=== PATIENT | female | born 1985 | race American Indian/Alaskan Native ===

== ENCOUNTER 2020-12-20 15:25 | Inpatient (IN) | payer MEDICAID ==
[2020-12-20] MEDS ORDERED: CARBOPROST TROMETHAMINE 250 MCG/1 ML INJ IM PRN (18:03)
[2020-12-20] MEDS ORDERED: fentaNYL 100 MCG/2 ML INJ IV PRN (18:03)
[2020-12-20] MEDS ORDERED: MINERAL OIL 30 ML ORAL LIQD PO PRN (18:03)
[2020-12-20] MEDS ORDERED: METHYLERGONOVINE MALEATE 0.2 MG/ML VIAL IM PRN (18:03)
[2020-12-20] MEDS ORDERED: miSOPROStol 200 MCG TAB PR PRN (18:03)
[2020-12-20] MEDS ORDERED: LIDOCAINE (2%) 20 MG/1 ML VIAL 20 ML MDV INFILTRATI ONE (18:03)
[2020-12-20] MEDS ORDERED: BUTORPHANOL 2 MG/1 ML INJ IV PRN (18:03)
[2020-12-20] MEDS ORDERED: ACETAMINOPHEN 325 MG TAB PO PRN (18:03)
[2020-12-20] MEDS ORDERED: TERBUTALINE 1 MG/1 ML INJ SUB-Q PRN (18:03)
[2020-12-20] MEDS ORDERED: LOPERAMIDE 2 MG CAP PO PRN (18:03)
[2020-12-20] MEDS ORDERED: OXYTOCIN 10 UNIT/1 ML INJ IM PRN (18:03)
[2020-12-20] MEDS ORDERED: AMPICILLIN/NS 2 GM/100 ML 2 GM/100 ML BAG IV ONE (18:03)
[2020-12-20] MEDS ORDERED: NalbUPHINE 10 MG/1 ML INJ IV PRN (18:03)
[2020-12-20] MEDS ORDERED: ePHEDrine SULFATE 50 MG/1 ML INJ IV PRN (18:03)
[2020-12-20] MEDS ORDERED: OXYTOCIN DRIP 30 UNITS/500 ML BAG IV SCH (19:00)
--- NOTE | 2020-12-20 20:03 | History and Physical Report ---
History of Present Illness Date of examination: 12/20/20 Date of admission: 12/20/20 15:26 Chief complaint: IOL for non-reactive NST at term History of present illness: 35-year-old -2-1-1 at 40 weeks and 1 day complicated by history of incompetent cervix status post cerclage and removal, class III obesity, size greater than dates with a history of a 10 pound baby suspected ASA of fetus to be managed postnatally. Renal chart reviewed B+ antibody negative Hemoglobin hematocrit 12.3 and 39.3 Rubella immune Pap smear negative VDRL nonreactive Urine culture negative Hemoglobin B surface antigen negative HIV negative Platelets 216,000 Gonorrhea chlamydia negative Varicella immune Ultrasound size equal to dates at 6 weeks and 6 days 1 hour GTT 85 -> 132 [id number] neg GBS negative neg Past History Past Medical History: no pertinent history Past Surgical History: other (cerclage placement and removal x 2) CLAIMS SPECIALIST History: herpes Family/Genetic History: diabetes, stroke, cancer (breast CA), other (asthma, thyroid CA,) Social history: no significant social history - Obstetrical History Expected Date of Delivery: 12/19/20 Actual Gestation: 40 Week(s) 1 Day(s) : 5 Para: 3 Hx # Term Pregnancies: 1 Number of Pregnancies: 2 Spontaneous Abortions: 1 Number of Living Children: 1 Medications and Allergies Allergies Allergy/AdvReac Type Severity Reaction Status Date / Time amoxicillin Allergy Nausea Verified 12/28/14 21:45 Home Medications Medication Instructions Recorded Confirmed Last Taken Type Multivitamins 1 tab PO DAILY 06/12/14 01/01/15 06/25/14 06:45 History Erythromycin Base [Apolinar-Tab] 250 mg PO QID #40 tablet 06/26/14 01/01/15 Unknown Rx Indomethacin 50 mg PO Q6H #12 capsule 06/26/14 01/01/15 Unknown Rx metroNIDAZOLE [Flagyl] 250 mg PO Q8HR #21 tablet 06/26/14 01/01/15 Unknown Rx oxyCODONE /ACETAMINOPHEN [Percocet 1 tab PO Q6HR PRN #30 tablet 06/26/14 01/01/15 Unknown Rx 5/325] Active Meds: Active Medications Acetaminophen (Acetaminophen 325 Mg Tab) 650 mg PO Q4H PRN PRN Reason: Pain, Mild (1-3) Butorphanol Tartrate (Butorphanol 2 Mg/1 Ml Inj) 2 mg IV Q2H PRN PRN Reason: Pain , Severe (7-10) Carboprost Tromethamine (Carboprost Tromethamine 250 Mcg/1 Ml Inj) 250 mcg IM ONCE PRN PRN Reason: Uterine Bleeding Ephedrine Sulfate (Ephedrine Sulfate 50 Mg/1 Ml Inj) 10 mg IV Q2M PRN PRN Reason: Hypotension Fentanyl (Fentanyl 100 Mcg/2 Ml Inj) 100 mcg IV Q2H PRN PRN Reason: Pain,Severe (7-10) LABOR PAIN Oxytocin/Sodium Chloride (Pitocin/Ns 30 Unit/500ml) 30 units in 500 mls @ 2 mls/hr IV TITR JOSE; Protocol Lactated Ringer's (Lactated Ringers) 1,000 mls @ 125 mls/hr IV DIRECT JOSE Oxytocin/Sodium Chloride (Pitocin/Ns 30 Unit/500ml) 30 units in 500 mls @ 40 mls/hr IV TITR JOSE; Protocol Loperamide HCl (Loperamide 2 Mg Cap) 2 mg PO ONCE PRN PRN Reason: give with Hemabate Methylergonovine Maleate (Methylergonovine Maleate 0.2 Mg/Ml Vial) 0.2 mg IM ONCE PRN PRN Reason: Uterine Bleeding Mineral Oil (Mineral Oil 30 Ml Oral Liqd) 30 ml PO QHS PRN PRN Reason: Constipation Misoprostol (Misoprostol 200 Mcg Tab) 800 mcg ND ONCE PRN PRN Reason: Uterine Bleeding Nalbuphine HCl (Nalbuphine 10 Mg/1 Ml Inj) 10 mg IV Q2H PRN PRN Reason: Pain, Moderate (4-6) Oxytocin (Oxytocin 10 Unit/1 Ml Inj) 10 unit IM ONCE PRN PRN Reason: Uterine Bleeding Terbutaline Sulfate (Terbutaline 1 Mg/1 Ml Inj) 0.25 mg SUB-Q ONCE PRN PRN Reason: Hyperstimulation/Hypertonicity Review of Systems All systems: negative (expect HPI) - Vital Signs Vital signs: Vital Signs Pulse BP Pulse Ox 88 127/70 97 12/20/20 16:35 12/20/20 16:35 12/20/20 16:35 Temp Pulse Resp BP Pulse Ox 98.3 F 85 17 128/72 98 12/20/20 19:52 12/20/20 19:53 12/20/20 19:52 12/20/20 19:53 12/20/20 19:53 - Physical Exam Abdomen: Positive: normal appearance, soft, normal bowel sounds Genitourinary (Female): Positive: normal external genitalia - Obstetrical FHR: category 1 Uterine Contraction Monitor Mode: External Cervical Dilatation: 4 Cervical Effacement Percentage: 50 station: -3 Uterine Contraction Pattern: Irregular Results All other labs normal. Assessment and Plan - Patient Problems (1) Active labor at term Onset Date: 01/01/15 Current Visit: No Status: Acute Plan to address problem: Patient presenting for induction of labor for nonreactive NST in clinic. Patient is full-term with indication of delivery for size greater than dates with a history of a 10 pound . --Proceed with Pitocin per protocol for induction of labor --GBS neg --IV pain medication as needed, epidural is available --Anticipate
[2020-12-20] MEDS: OXYTOCIN DRIP 30 UNITS/500 ML BAG IV SCH (20:51)
[2020-12-20] MEDS: LACTATED RINGERS 1,000 ML IV SCH (20:51)
[2020-12-20 21:02] LABS: Hematocrit 35.9 % (30.3-42.9); Hemoglobin 11.6 gm/dl (10.1-14.3); Mean Corpuscular HGB Conc 32 % (30-34); Mean Corpuscular Volume 82 fl (79-97); Platelet Count 158 K/mm3 (140-440); Red Blood Count 4.36 M/mm3 (3.65-5.03)
[2020-12-21] MEDS: LACTATED RINGERS 1,000 ML IV SCH ×2 (10:01→17:01)
--- NOTE | 2020-12-21 12:54 | Event Note ---
Date: 12/21/20 pt evaluated. Pelvic 5-/-1 with cerclage removed 12/03/20 by [facility]. AROM attempted with FSE and scant fluid with mucus plug obtained, indeterminate at this time. I will stop pitocin now at 20mu/min. Discussed with pt plan of care with previous 10lb vag delivery and possible need for c/section this . pt declines aware of risk of shoulder dystocia. Pt offered epidural and she declines. Will allow reset of pitocin receptors. and restart pitocin at 2m/u every 15mins and a new bag of pitocin.
[2020-12-21] MEDS: OXYTOCIN DRIP 30 UNITS/500 ML BAG IV SCH (13:16)
[2020-12-21] MEDS ORDERED: LACTATED RINGERS 250 ML IV SOLN IV ONE (17:14)
[2020-12-21] MEDS ORDERED: LACTATED RINGERS 1,000 ML IV SCH (17:30)
[2020-12-21] MEDS ORDERED: NALOXONE 2 MG/2 ML INJ IV PRN (18:00)
[2020-12-21] MEDS ORDERED: ePHEDrine SULFATE 50 MG/1 ML INJ IV PRN (18:00)
[2020-12-21] MEDS ORDERED: ONDANSETRON 4 MG/2 ML INJ IV PRN (18:00)
[2020-12-21] MEDS ORDERED: diphenhydrAMINE 50 MG/ML VIAL IV PRN (18:00)
[2020-12-21] MEDS ORDERED: NalbUPHINE 10 MG/1 ML INJ IV PRN (18:00)
[2020-12-21] MEDS: fentaNYL-BUPIV 2 MCG/ML-0.125% 200 MCG/100 ML BAG EPIDURAL SCH (18:21)
--- NOTE | 2020-12-21 18:51 | Anesthesia Consultation ---
Anesthesia Consult and Med Hx Date of service: 12/21/20 - Airway Anesthetic Teeth Evaluation: Good ROM Head & Neck: Adequate Mental/Hyoid Distance: Adequate Mallampati Class: Class III Intubation Access Assessment: Possibly Difficult - Pre-Operative Health Status ASA Pre-Surgery Classification: ASA3 Proposed Anesthetic Plan: Epidural, Spinal - Pulmonary Hx Smoking: No Hx Respiratory Symptoms: No - Cardiovascular System Hx Hypertension: No - Central Nervous System Hx Neuromuscular Disorder: No CVA: No - Endocrine Hx Renal Disease: No Hx Liver Disease: No Hx Insulin Dependent Diabetes: No Hx Non-Insulin Dependent Diabetes: No Hx Thyroid Disease: No - Other Systems Hx Obesity: Yes (BMI 47) - Additional Comments Anesthesia Medical History Comments: Denies hx back surgery, scoliosis, bleeding disorders or anticoagulant use. No hx anesthetic complications. Hx cerclage under neuraxial without complications.
--- NOTE | 2020-12-21 18:53 | Progress Note ---
Labor Epidural - Labor Epidural Start Time: 17:59 Stop Time: 16:13 Performed by:: ANSHUL DUQUE Procedure: Patient is requesting epidural for labor pain. H&P and labs reviewed. Procedure explained, questions answered, consent obtained. Patient placed in sitting position with monitors applied. Timeout performed immediately before start of procedure. Prep/drape in usual sterile fashion. Skin localized 3 mL 1% lidocaine at L[2]-L[3] interspace. 18-gauge MCube, Inctead epidural needle advanced to TANESHA with saline at [8] cm. No blood/CSF noted via epidural needle. 26g spinal needle advanced into intrathecal space until clear, free flowing CSF noted. 0.5cc 0.75% hyperbaric bupivacaine + 0.5cc sterile saline injected into intrathecal space. Spinal needle removed and epidural catheter advanced to [13] cm. Negative aspiration for blood and CSF via catheter, negative response to test dose 3 ml 1.5% lidocaine w/ epi. Sterile dressing applied followed by tape reinforcement. Patient tolerated procedure well. No immediate complications noted.
[2020-12-22] MEDS: fentaNYL-BUPIV 2 MCG/ML-0.125% 200 MCG/100 ML BAG EPIDURAL SCH ×2 (02:15→10:22)
[2020-12-22] MEDS ORDERED: BUPIVACAINE/PF (0.25%) 2.5 MG/ML 10 ML VIAL INFILTRATI ONE (02:35)
--- NOTE | 2020-12-22 04:10 | Event Note ---
Date: 12/22/20 pt evaluated after nurse stated pt had a large gush of fluid and FHR noted to be in 70-90's, the OR opened in prep for emergent section. Pt declined c/section aware of the risks, benefits and alternatives. IV pitocin at 20mu/min and same stopped, brethine x1 dose given for tacchysystole. FSE attempted x2 without avail. External with reassuring FHR. IV fluid bolus given. Large amount of amniotic clear fluid noted. Pelvic 7-. IUPC remains in place.
[2020-12-22] MEDS ORDERED: VANCOMYCIN/NS 1 GM/250 ML 1 GM/250 ML BAG IV SCH (06:00)
--- NOTE | 2020-12-22 09:27 | Progress Note ---
Subjective - Subjective Date of service: 12/22/20 Interval history: Prolonged active phase: Cervix 9cm/80%/-2 [place]: Q6 minutes OCytocin on hold from PM shift for NRFHT FHT at bedside: 140 baseline, period of minimal to moderate variability, +ve accelerations Late decelerations noted this morning(resolved) Patient has not eaten since Sunday AM plan for fluids, oxytocin and cfm expect in next four hours or plan for operative delivery Jarvis Nettles MD Objective - Vital Signs Vital Signs: Vital Signs - 12hr 12/21/20 12/21/20 12/21/20 21:23 21:26 21:28 Temperature Pulse Rate 72 73 73 Respiratory Rate Blood Pressure 122/65 124/65 Blood Pressure [Left] O2 Sat by Pulse 98 96 Oximetry O2 Sat by Pulse Oximetry [ Throughout] 12/21/20 12/21/20 12/21/20 21:29 21:30 21:32 Temperature 98.1 F Pulse Rate 67 71 71 Respiratory Rate Blood Pressure 127/65 114/58 Blood Pressure [Left] O2 Sat by Pulse 94 Oximetry O2 Sat by Pulse Oximetry [ Throughout] 12/21/20 12/21/20 12/21/20 21:33 21:35 21:38 Temperature Pulse Rate 65 75 66 Respiratory Rate Blood Pressure 126/59 117/65 Blood Pressure [Left] O2 Sat by Pulse 96 97 Oximetry O2 Sat by Pulse Oximetry [ Throughout] 12/21/20 12/21/20 12/21/20 21:41 21:43 21:44 Temperature Pulse Rate 68 67 75 Respiratory Rate Blood Pressure 118/67 123/68 Blood Pressure [Left] O2 Sat by Pulse 96 Oximetry O2 Sat by Pulse Oximetry [ Throughout] 12/21/20 12/21/20 12/21/20 21:47 21:48 21:50 Temperature Pulse Rate 71 67 74 Respiratory Rate Blood Pressure 124/70 128/65 Blood Pressure [Left] O2 Sat by Pulse 97 Oximetry O2 Sat by Pulse Oximetry [ Throughout] 12/21/20 12/21/20 12/21/20 21:53 21:56 21:58 Temperature Pulse Rate 66 81 69 Respiratory Rate Blood Pressure 118/62 121/65 Blood Pressure [Left] O2 Sat by Pulse 97 99 Oximetry O2 Sat by Pulse Oximetry [ Throughout] 12/21/20 12/21/20 12/21/20 21:59 22:02 22:03 Temperature Pulse Rate 82 57 L 64 Respiratory Rate Blood Pressure 123/72 126/65 Blood Pressure [Left] O2 Sat by Pulse 99 Oximetry O2 Sat by Pulse Oximetry [ Throughout] 12/21/20 12/21/20 12/21/20 22:05 22:08 22:11 Temperature Pulse Rate 68 71 69 Respiratory Rate Blood Pressure 127/63 129/74 129/74 Blood Pressure [Left] O2 Sat by Pulse 98 Oximetry O2 Sat by Pulse Oximetry [ Throughout] 12/21/20 12/21/20 12/21/20 22:13 22:14 22:17 Temperature Pulse Rate 75 80 76 Respiratory Rate Blood Pressure 129/79 121/71 Blood Pressure [Left] O2 Sat by Pulse 98 Oximetry O2 Sat by Pulse Oximetry [ Throughout] 12/21/20 12/21/20 12/21/20 22:18 22:20 22:23 Temperature Pulse Rate 71 85 87 Respiratory Rate Blood Pressure 121/70 127/71 Blood Pressure [Left] O2 Sat by Pulse 95 100 Oximetry O2 Sat by Pulse Oximetry [ Throughout] 12/21/20 12/21/20 12/21/20 22:24 22:26 22:28 Temperature Pulse Rate 95 H 90 104 H Respiratory Rate Blood Pressure 128/65 Blood Pressure [Left] O2 Sat by Pulse 94 97 Oximetry O2 Sat by Pulse Oximetry [ Throughout] 12/21/20 12/21/20 12/21/20 22:29 22:30 22:32 Temperature Pulse Rate 97 H 100 H 82 Respiratory Rate Blood Pressure 130/70 123/63 Blood Pressure [Left] O2 Sat by Pulse 92 Oximetry O2 Sat by Pulse Oximetry [ Throughout] 12/21/20 12/21/20 12/21/20 22:33 22:35 22:38 Temperature Pulse Rate 69 86 72 Respiratory Rate Blood Pressure 127/69 132/72 Blood Pressure [Left] O2 Sat by Pulse 96 92 100 Oximetry O2 Sat by Pulse Oximetry [ Throughout] 12/21/20 12/21/20 12/21/20 22:41 22:43 22:44 Temperature Pulse Rate 80 78 86 Respiratory Rate Blood Pressure 136/72 147/74 Blood Pressure [Left] O2 Sat by Pulse 91 96 Oximetry O2 Sat by Pulse Oximetry [ Throughout] 12/21/20 12/21/20 12/21/20 22:47 22:48 22:50 Temperature Pulse Rate 74 72 75 Respiratory Rate Blood Pressure 131/68 131/68 Blood Pressure [Left] O2 Sat by Pulse 97 Oximetry O2 Sat by Pulse Oximetry [ Throughout] 12/21/20 12/21/20 12/21/20 22:53 22:56 22:58 Temperature Pulse Rate 71 90 78 Respiratory Rate Blood Pressure 135/74 134/74 Blood Pressure [Left] O2 Sat by Pulse 97 98 Oximetry O2 Sat by Pulse Oximetry [ Throughout] 12/21/20 12/21/20 12/21/20 22:59 23:03 23:06 Temperature Pulse Rate 94 H 77 73 Respiratory Rate Blood Pressure 128/65 108/53 141/76 Blood Pressure [Left] O2 Sat by Pulse 100 Oximetry O2 Sat by Pulse Oximetry [ Throughout] 12/21/20 12/21/20 12/21/20 23:08 23:09 23:11 Temperature Pulse Rate 68 72 71 Respiratory Rate Blood Pressure 126/60 116/56 Blood Pressure [Left] O2 Sat by Pulse 98 Oximetry O2 Sat by Pulse Oximetry [ Throughout] 12/21/20 12/21/20 12/21/20 23:13 23:14 23:17 Temperature Pulse Rate 68 72 71 Respiratory Rate Blood Pressure 126/59 121/58 Blood Pressure [Left] O2 Sat by Pulse 98 Oximetry O2 Sat by Pulse Oximetry [ Throughout] 12/21/20 12/21/20 12/21/20 23:18 23:20 23:23 Temperature Pulse Rate 68 68 70 Respiratory Rate Blood Pressure 122/60 120/60 Blood Pressure [Left] O2 Sat by Pulse 98 97 Oximetry O2 Sat by Pulse Oximetry [ Throughout] 12/21/20 12/21/20 12/21/20 23:26 23:28 23:29 Temperature Pulse Rate 76 70 70 Respiratory Rate Blood Pressure 118/63 119/65 Blood Pressure [Left] O2 Sat by Pulse 97 Oximetry O2 Sat by Pulse Oximetry [ Throughout] 12/21/20 12/21/20 12/21/20 23:32 23:33 23:35 Temperature Pulse Rate 76 69 72 Respiratory Rate Blood Pressure 121/68 124/67 Blood Pressure [Left] O2 Sat by Pulse 98 Oximetry O2 Sat by Pulse Oximetry [ Throughout] 12/21/20 12/21/20 12/21/20 23:38 23:41 23:43 Temperature Pulse Rate 76 86 93 H Respiratory Rate Blood Pressure 117/62 120/67 Blood Pressure [Left] O2 Sat by Pulse 97 97 Oximetry O2 Sat by Pulse Oximetry [ Throughout] 12/21/20 12/21/20 12/21/20 23:48 23:50 23:53 Temperature 98.2 F Pulse Rate 74 76 Respiratory Rate Blood Pressure Blood Pressure [Left] O2 Sat by Pulse 97 95 Oximetry O2 Sat by Pulse Oximetry [ Throughout] 12/21/20 12/22/20 12/22/20 23:58 00:03 00:08 Temperature Pulse Rate 72 75 74 Respiratory Rate Blood Pressure Blood Pressure [Left] O2 Sat by Pulse 96 96 96 Oximetry O2 Sat by Pulse Oximetry [ Throughout] 12/22/20 12/22/20 12/22/20 00:13 00:16 00:18 Temperature Pulse Rate 76 80 77 Respiratory Rate Blood Pressure 121/69 Blood Pressure [Left] O2 Sat by Pulse 95 95 Oximetry O2 Sat by Pulse Oximetry [ Throughout] 12/22/20 12/22/20 12/22/20 00:23 00:28 00:33 Temperature Pulse Rate 77 79 82 Respiratory Rate Blood Pressure Blood Pressure [Left] O2 Sat by Pulse 96 95 97 Oximetry O2 Sat by Pulse Oximetry [ Throughout] 12/22/20 12/22/20 12/22/20 00:38 00:43 00:45 Temperature Pulse Rate 79 80 80 Respiratory Rate Blood Pressure 126/66 Blood Pressure [Left] O2 Sat by Pulse 95 96 Oximetry O2 Sat by Pulse Oximetry [ Throughout] 12/22/20 12/22/20 12/22/20 00:48 00:49 00:53 Temperature Pulse Rate 77 83 85 Respiratory Rate Blood Pressure Blood Pressure [Left] O2 Sat by Pulse 95 94 96 Oximetry O2 Sat by Pulse Oximetry [ Throughout] 12/22/20 12/22/20 12/22/20 00:58 01:00 01:03 Temperature 98.5 F Pulse Rate 81 91 H Respiratory Rate Blood Pressure Blood Pressure [Left] O2 Sat by Pulse 99 98 Oximetry O2 Sat by Pulse Oximetry [ Throughout] 12/22/20 12/22/20 12/22/20 01:08 01:13 01:15 Temperature Pulse Rate 95 H 89 85 Respiratory Rate Blood Pressure 131/72 Blood Pressure [Left] O2 Sat by Pulse 96 99 Oximetry O2 Sat by Pulse Oximetry [ Throughout] 12/22/20 12/22/20 12/22/20 01:18 01:23 01:28 Temperature Pulse Rate 81 86 87 Respiratory Rate Blood Pressure Blood Pressure [Left] O2 Sat by Pulse 99 97 98 Oximetry O2 Sat by Pulse Oximetry [ Throughout] 12/22/20 12/22/20 12/22/20 01:33 01:38 01:43 Temperature Pulse Rate 90 95 H 96 H Respiratory Rate Blood Pressure Blood Pressure [Left] O2 Sat by Pulse 97 97 98 Oximetry O2 Sat by Pulse Oximetry [ Throughout] 12/22/20 12/22/20 12/22/20 01:44 01:48 01:53 Temperature Pulse Rate 84 93 H 90 Respiratory Rate Blood Pressure 138/83 Blood Pressure [Left] O2 Sat by Pulse 97 97 Oximetry O2 Sat by Pulse Oximetry [ Throughout] 12/22/20 12/22/20 12/22/20 01:58 02:03 02:08 Temperature Pulse Rate 103 H 106 H 104 H Respiratory Rate Blood Pressure Blood Pressure [Left] O2 Sat by Pulse 97 98 97 Oximetry O2 Sat by Pulse Oximetry [ Throughout] 12/22/20 12/22/20 12/22/20 02:13 02:15 02:18 Temperature Pulse Rate 112 H 104 H 105 H Respiratory Rate Blood Pressure 138/70 Blood Pressure [Left] O2 Sat by Pulse 97 96 Oximetry O2 Sat by Pulse Oximetry [ Throughout] 12/22/20 12/22/20 12/22/20 02:23 02:28 02:33 Temperature Pulse Rate 114 H 111 H 91 H Respiratory Rate Blood Pressure Blood Pressure [Left] O2 Sat by Pulse 97 97 97 Oximetry O2 Sat by Pulse Oximetry [ Throughout] 12/22/20 12/22/20 12/22/20 02:38 02:43 02:45 Temperature Pulse Rate 93 H 93 H 92 H Respiratory Rate Blood Pressure 134/75 Blood Pressure [Left] O2 Sat by Pulse 98 97 Oximetry O2 Sat by Pulse Oximetry [ Throughout] 12/22/20 12/22/20 12/22/20 02:48 02:53 02:54 Temperature Pulse Rate 83 91 H 95 H Respiratory Rate Blood Pressure 119/56 Blood Pressure [Left] O2 Sat by Pulse 97 97 Oximetry O2 Sat by Pulse Oximetry [ Throughout] 12/22/20 12/22/2012/22/21 02:58 03:03 03:08 Temperature Pulse Rate 136 H 120 H 133 H Respiratory Rate Blood Pressure Blood Pressure [Left] O2 Sat by Pulse 97 99 100 Oximetry O2 Sat by Pulse Oximetry [ Throughout] 12/22/20 12/22/20 12/22/20 03:13 03:14 03:18 Temperature Pulse Rate 115 H 100 H 113 H Respiratory Rate Blood Pressure Blood Pressure [Left] O2 Sat by Pulse 98 88 100 Oximetry O2 Sat by Pulse Oximetry [ Throughout] 12/22/20 12/22/20 12/22/20 03:23 03:28 03:33 Temperature Pulse Rate 113 H 114 H 98 H Respiratory Rate Blood Pressure Blood Pressure [Left] O2 Sat by Pulse 99 99 100 Oximetry O2 Sat by Pulse Oximetry [ Throughout] 12/22/20 12/22/20 12/22/20 03:38 03:43 03:48 Temperature Pulse Rate 97 H 103 H 87 Respiratory Rate Blood Pressure Blood Pressure [Left] O2 Sat by Pulse 100 100 100 Oximetry O2 Sat by Pulse Oximetry [ Throughout] 12/22/20 12/22/20 12/22/20 03:53 03:58 04:03 Temperature Pulse Rate 85 85 99 H Respiratory Rate Blood Pressure Blood Pressure [Left] O2 Sat by Pulse 100 100 100 Oximetry O2 Sat by Pulse Oximetry [ Throughout] 12/22/20 12/22/20 12/22/20 04:08 04:13 04:18 Temperature Pulse Rate 92 H 88 84 Respiratory Rate Blood Pressure Blood Pressure [Left] O2 Sat by Pulse 100 100 100 Oximetry O2 Sat by Pulse Oximetry [ Throughout] 12/22/20 12/22/20 12/22/20 04:23 04:28 04:33 Temperature Pulse Rate 101 H 98 H 97 H Respiratory Rate Blood Pressure Blood Pressure [Left] O2 Sat by Pulse 98 99 97 Oximetry O2 Sat by Pulse Oximetry [ Throughout] 12/22/20 12/22/20 12/22/20 04:38 04:43 04:44 Temperature Pulse Rate 101 H 96 H 82 Respiratory Rate Blood Pressure 112/55 Blood Pressure [Left] O2 Sat by Pulse 97 97 Oximetry O2 Sat by Pulse Oximetry [ Throughout] 12/22/20 12/22/20 12/22/20 04:47 04:48 04:53 Temperature 98.3 F Pulse Rate 81 81 Respiratory Rate Blood Pressure Blood Pressure [Left] O2 Sat by Pulse 98 98 Oximetry O2 Sat by Pulse Oximetry [ Throughout] 12/22/20 12/22/20 12/22/20 04:58 05:03 05:08 Temperature Pulse Rate 74 69 76 Respiratory Rate Blood Pressure Blood Pressure [Left] O2 Sat by Pulse 99 96 97 Oximetry O2 Sat by Pulse Oximetry [ Throughout] 12/22/20 12/22/20 12/22/20 05:13 05:14 05:18 Temperature Pulse Rate 86 76 72 Respiratory Rate Blood Pressure 104/61 Blood Pressure [Left] O2 Sat by Pulse 96 97 Oximetry O2 Sat by Pulse Oximetry [ Throughout] 12/22/20 12/22/20 12/22/20 05:23 05:25 05:28 Temperature Pulse Rate 82 70 72 Respiratory Rate Blood Pressure Blood Pressure [Left] O2 Sat by Pulse 97 94 98 Oximetry O2 Sat by Pulse Oximetry [ Throughout] 12/22/20 12/22/20 12/22/20 05:31 05:33 05:38 Temperature Pulse Rate 80 69 77 Respiratory Rate Blood Pressure Blood Pressure [Left] O2 Sat by Pulse 93 96 95 Oximetry O2 Sat by Pulse Oximetry [ Throughout] 12/22/20 12/22/20 12/22/20 05:39 05:43 05:44 Temperature Pulse Rate 73 80 81 Respiratory Rate Blood Pressure 116/63 Blood Pressure [Left] O2 Sat by Pulse 94 95 Oximetry O2 Sat by Pulse Oximetry [ Throughout] 12/22/20 12/22/20 12/22/20 05:45 05:48 05:50 Temperature Pulse Rate 78 81 86 Respiratory Rate Blood Pressure Blood Pressure [Left] O2 Sat by Pulse 94 94 94 Oximetry O2 Sat by Pulse Oximetry [ Throughout] 12/22/20 12/22/20 12/22/20 05:53 05:56 05:58 Temperature Pulse Rate 76 78 74 Respiratory Rate Blood Pressure Blood Pressure [Left] O2 Sat by Pulse 97 94 96 Oximetry O2 Sat by Pulse Oximetry [ Throughout] 12/22/20 12/22/20 12/22/20 06:02 06:03 06:08 Temperature Pulse Rate 78 77 80 Respiratory Rate Blood Pressure Blood Pressure [Left] O2 Sat by Pulse 94 96 95 Oximetry O2 Sat by Pulse Oximetry [ Throughout] 12/22/20 12/22/20 12/22/20 06:13 06:14 06:18 Temperature Pulse Rate 92 H 81 72 Respiratory Rate Blood Pressure 111/57 Blood Pressure [Left] O2 Sat by Pulse 95 93 96 Oximetry O2 Sat by Pulse Oximetry [ Throughout] 12/22/20 12/22/20 12/22/20 06:19 06:23 06:27 Temperature Pulse Rate 72 78 80 Respiratory Rate Blood Pressure Blood Pressure [Left] O2 Sat by Pulse 91 95 91 Oximetry O2 Sat by Pulse Oximetry [ Throughout] 12/22/20 12/22/20 12/22/20 06:28 06:32 06:33 Temperature Pulse Rate 77 86 78 Respiratory Rate Blood Pressure Blood Pressure [Left] O2 Sat by Pulse 95 90 96 Oximetry O2 Sat by Pulse Oximetry [ Throughout] 12/22/20 12/22/20 12/22/20 06:38 06:43 06:44 Temperature Pulse Rate 85 79 77 Respiratory Rate Blood Pressure 113/57 Blood Pressure [Left] O2 Sat by Pulse 93 96 Oximetry O2 Sat by Pulse Oximetry [ Throughout] 12/22/20 12/22/20 12/22/20 06:45 06:48 06:51 Temperature Pulse Rate 78 74 78 Respiratory Rate Blood Pressure Blood Pressure [Left] O2 Sat by Pulse 92 95 94 Oximetry O2 Sat by Pulse Oximetry [ Throughout] 12/22/20 12/22/20 12/22/20 06:53 06:57 06:58 Temperature Pulse Rate 81 78 79 Respiratory Rate Blood Pressure Blood Pressure [Left] O2 Sat by Pulse 95 93 95 Oximetry O2 Sat by Pulse Oximetry [ Throughout] 12/22/20 12/22/20 12/22/20 07:03 07:05 07:08 Temperature 98.3 F Pulse Rate 77 94 H 83 Respiratory 16 Rate Blood Pressure Blood Pressure 120/62 [Left] O2 Sat by Pulse 94 100 93 Oximetry O2 Sat by Pulse 100 Oximetry [ Throughout] 12/22/20 12/22/20 12/22/20 07:13 07:14 07:18 Temperature Pulse Rate 86 96 H 64 Respiratory Rate Blood Pressure 112/59 Blood Pressure [Left] O2 Sat by Pulse 90 94 Oximetry O2 Sat by Pulse Oximetry [ Throughout] 12/22/20 12/22/20 12/22/20 07:23 07:24 07:28 Temperature Pulse Rate 78 82 116 H Respiratory Rate Blood Pressure Blood Pressure [Left] O2 Sat by Pulse 96 94 98 Oximetry O2 Sat by Pulse Oximetry [ Throughout] 12/22/20 12/22/20 12/22/20 07:30 07:33 07:38 Temperature Pulse Rate 100 H 94 H 94 H Respiratory Rate Blood Pressure 120/62 Blood Pressure [Left] O2 Sat by Pulse 96 95 Oximetry O2 Sat by Pulse Oximetry [ Throughout] 12/22/20 12/22/20 12/22/20 07:42 07:43 07:44 Temperature Pulse Rate 101 H 101 H 88 Respiratory Rate Blood Pressure 106/61 Blood Pressure [Left] O2 Sat by Pulse 94 94 Oximetry O2 Sat by Pulse Oximetry [ Throughout] 12/22/20 12/22/20 12/22/20 07:47 07:48 07:53 Temperature Pulse Rate 87 77 83 Respiratory Rate Blood Pressure Blood Pressure [Left] O2 Sat by Pulse 94 95 93 Oximetry O2 Sat by Pulse Oximetry [ Throughout] 12/22/20 12/22/20 12/22/20 07:55 07:58 08:03 Temperature Pulse Rate 89 88 84 Respiratory Rate Blood Pressure Blood Pressure [Left] O2 Sat by Pulse 94 93 93 Oximetry O2 Sat by Pulse Oximetry [ Throughout] 12/22/20 12/22/20 12/22/20 08:08 08:13 08:15 Temperature Pulse Rate 89 103 H 85 Respiratory Rate Blood Pressure 98/55 Blood Pressure [Left] O2 Sat by Pulse 93 90 Oximetry O2 Sat by Pulse Oximetry [ Throughout] 12/22/20 12/22/20 12/22/20 08:18 08:21 08:23 Temperature Pulse Rate 88 77 89 Respiratory Rate Blood Pressure Blood Pressure [Left] O2 Sat by Pulse 93 94 93 Oximetry O2 Sat by Pulse Oximetry [ Throughout] 12/22/20 12/22/20 12/22/20 08:28 08:31 08:33 Temperature Pulse Rate 97 H 91 H 95 H Respiratory Rate Blood Pressure Blood Pressure [Left] O2 Sat by Pulse 94 92 94 Oximetry O2 Sat by Pulse Oximetry [ Throughout] 12/22/20 12/22/20 12/22/20 08:38 08:39 08:43 Temperature Pulse Rate 99 H 106 H 89 Respiratory Rate Blood Pressure Blood Pressure [Left] O2 Sat by Pulse 96 93 94 Oximetry O2 Sat by Pulse Oximetry [ Throughout] 10/12/22/20 12/22/20 08:44 08:45 08:48 Temperature Pulse Rate 85 82 82 Respiratory Rate Blood Pressure 96/51 Blood Pressure [Left] O2 Sat by Pulse 94 94 Oximetry O2 Sat by Pulse Oximetry [ Throughout] 12/22/20 12/22/20 12/22/20 08:51 08:53 08:57 Temperature Pulse Rate 80 94 H 95 H Respiratory Rate Blood Pressure Blood Pressure [Left] O2 Sat by Pulse 94 94 94 Oximetry O2 Sat by Pulse Oximetry [ Throughout] 12/22/20 12/22/20 12/22/20 08:58 09:03 09:08 Temperature Pulse Rate 84 119 H 107 H Respiratory Rate Blood Pressure Blood Pressure [Left] O2 Sat by Pulse 94 99 97 Oximetry O2 Sat by Pulse Oximetry [ Throughout] 12/22/20 12/22/20 12/22/20 09:09 09:13 09:15 Temperature Pulse Rate 110 H 101 H 60 Respiratory Rate Blood Pressure Blood Pressure [Left] O2 Sat by Pulse 92 99 87 Oximetry O2 Sat by Pulse Oximetry [ Throughout] 12/22/20 09:18 Temperature Pulse Rate 105 H Respiratory Rate Blood Pressure Blood Pressure [Left] O2 Sat by Pulse 96 Oximetry O2 Sat by Pulse Oximetry [ Throughout] - Labs Labs: Abnormal Labs 12/20/20 20:28 MCH 27 L RDW 17.0 H Laboratory Results - last 24 hr 12/21/20 09:05 Coronavirus (PCR) Negative
[2020-12-22] MEDS ORDERED: D5W/LACTATED RINGERS 1,000 ML IV SCH (10:00)
[2020-12-22 13:10] LABS: Cord Art Bld Methemoglobin 1.1 mmHg; Cord Arterial Blood HCO3 24.3
[2020-12-22] MEDS ORDERED: LANOLIN/ZINC/DIMETHICONE (LANSINOH) 7 GM TP PRN (13:32)
[2020-12-22] MEDS ORDERED: WITCH HAZEL/ GLYCERIN PAD TP PRN (13:32)
--- NOTE | 2020-12-22 13:32 | Procedure Note ---
OB Delivery Note - Delivery Date of Delivery: 12/22/20 (1243) Surgeon: ALESSIO CORDOBA Estimated blood loss: 300cc - Vaginal Delivery presentation: vertex Delivery position: OA Intrapartum events: prolonged active phase Delivery induction: oxytocin Delivery augmentation: rupture of membranes, pitocin Delivery monitor: external FHT, internal uterine Route of delivery: Delivery placenta: spontaneous Delivery cord: nuchal cord, 3 umbilical vessels Episiotomy: none Delivery laceration: 1st degree Delivery repair: vicryl Anesthesia: epidural Delivery comments: of a live 9'1 female over a 1st degree perineal laceration under epidural anesthesia with Apgars of 8 and 9 at 1243 on 12/22/2020. Nuchal cord x 1 easily manually reduced on the perineum prior to delivery of the anterior shoulder. Cord double clamped and cut by JIMMY Cordoba, and handed directly to awaiting NICU/RESP team. Cord blood gasses collected X 2. Spontaneous delivery of placenta complete and intact with Gonzalez side presenting at 1255. Fundus is firm and midline located 4 below the U. Lochia is scant. Perineal laceration repaired with 2-[address]-1. - A at 1 minute: 8 at 5 minutes: 9 Infant Gender: Female (9'1)
[2020-12-22 14:42] LABS: Cord Venous Blood PO2 29.2
[2020-12-22 14:44] LABS: Cord Arterial Oxyhemoglobin 31.7
[2020-12-22 14:45] LABS: Cord Venous Oxyhemoglobin 65.6
[2020-12-22 14:55] LABS: Cord Venous Blood HCO3 21.2
[2020-12-22] MEDS: HYDROcodone/ACETAMINOPHEN 5-325 MG TAB PO PRN (15:42)
[2020-12-22] MEDS: IBUPROFEN 600 MG TAB PO SCH (18:00)
[2020-12-23] MEDS: IBUPROFEN 600 MG TAB PO SCH ×5 (00:15→19:48)
[2020-12-23 05:18] LABS: Hematocrit 31.2 % (30.3-42.9); Hemoglobin 10.2 gm/dl (10.1-14.3)
[2020-12-23] MEDS: PRENATAL VIT27-FE FUMARATE-FOLIC ACID VIT TAB PO SCH (09:49)
--- NOTE | 2020-12-23 11:07 | Progress Note ---
Assessment and Plan A: S/P P: D/C home today if stable per pt's request Subjective - Subjective Date of service: 12/23/20 Principal diagnosis: S/P Patient reports: appetite normal, voiding normally, pain well controlled, flatus : doing well, bottle feeding Objective - Vital Signs Latest vital signs: Vital Signs Temp Pulse Resp BP BP Pulse Ox Pulse Ox 12/23/20 07:37 97.7 F 86 16 128/77 96 12/23/20 00:32 98.0 F 110 H 20 130/79 97 12/22/20 21:10 98.1 F 109 H 20 128/71 97 98 12/22/20 17:45 98.7 F 12/22/20 15:05 100.3 F H 111 H 24 132/85 98 98 12/22/20 14:34 102 H 148/68 12/22/20 14:33 105 H 95 12/22/20 14:30 107 H 168/70 12/22/20 14:28 113 H 97 12/22/20 14:25 117 H 172/69 12/22/20 14:23 111 H 94 12/22/20 14:18 112 H 84 12/22/20 14:17 16 12/22/20 14:14 164 H 140/96 12/22/20 14:13 112 H 97 12/22/20 14:09 121 H 147/100 12/22/20 14:08 110 H 98 12/22/20 14:03 110 H 96 12/22/20 14:00 121 H 147/84 94 12/22/20 13:58 113 H 96 12/22/20 13:54 120 H 143/63 12/22/20 13:53 110 H 96 12/22/20 13:49 110 H 137/59 12/22/20 13:48 113 H 97 12/22/20 13:45 105 H 138/70 12/22/20 13:43 116 H 98 12/22/20 13:39 105 H 134/67 12/22/20 13:38 107 H 99 12/22/20 13:35 106 H 129/68 12/22/20 13:33 101 H 97 12/22/20 13:31 104 H 91 12/22/20 13:30 107 H 133/65 12/22/20 13:28 113 H 97 12/22/20 13:24 105 H 127/73 12/22/20 13:23 107 H 98 12/22/20 13:19 120 H 130/69 12/22/20 13:18 111 H 98 12/22/20 13:14 107 H 134/69 12/22/20 13:13 114 H 100 12/22/20 13:09 112 H 135/70 12/22/20 13:08 120 H 98 12/22/20 13:04 117 H 139/72 12/22/20 13:03 114 H 96 12/22/20 13:00 117 H 144/76 12/22/20 12:58 113 H 97 12/22/20 12:53 122 H 96 12/22/20 12:50 116 H 127/66 12/22/20 12:48 123 H 96 12/22/20 12:43 144 H 97 12/22/20 12:38 118 H 96 12/22/20 12:33 137 H 96 12/22/20 12:28 124 H 97 12/22/20 12:23 106 H 136/82 94 12/22/20 12:18 111 H 98 12/22/20 12:13 106 H 97 12/22/20 12:08 100 H 96 12/22/20 12:06 102 H 89 12/22/20 12:03 110 H 98 12/22/20 11:58 110 H 96 12/22/20 11:54 99 H 94 12/22/20 11:53 113 H 96 12/22/20 11:48 98 H 96 12/22/20 11:44 107 H 134/74 94 12/22/20 11:43 106 H 95 12/22/20 11:38 86 96 12/22/20 11:33 89 96 12/22/20 11:32 112 H 94 12/22/20 11:28 90 97 12/22/20 11:23 111 H 98 12/22/20 11:18 97 H 98 12/22/20 11:14 88 118/58 12/22/20 11:13 93 H 97 12/22/20 11:08 90 98 Intake and Output 12/22/20 12/23/20 12/23/20 22:59 06:59 14:59 Intake Total 240 360 240 Output Total 300 Balance -60 360 240 Intake: Oral 240 360 240 Output: Urine 300 Void 300 Other: Total, Intake Amount 240 120 240 Total, Output Amount 300 # Voids Void 1 1 - Exam Breasts: Present: normal Abdomen: Present: normal appearance, soft, normal bowel sounds Vulva: both: normal Uterus: Present: normal, firm, fundal height below umbilicus Extremities: Present: normal Incision: Present: normal, intact - Labs Labs: Abnormal lab results 12/22/20 Range/Units 15:18 Creatinine 1.3 H (0.6-1.2) mg/dL
--- NOTE | 2020-12-23 11:24 | Discharge Summary ---
Providers - Providers Date of Admission: 12/20/20 15:26 Date of discharge: 12/23/20 Attending physician: LUCIUS BRANHAM JR, MD Primary care physician: LUCIUS BRANHAM JR, MD Hospitalization Reason for admission: active labor, IUP at term Delivery: Laceration: 1st degree Incision: normal, intact Other procedures: none complications: none Discharge diagnosis: IUP at term delivered [place] baby: female Condition at discharge: Stable Disposition: 01 HOME / SELF CARE / HOMELESS Plan - Discharge Medications Prescriptions: Ibuprofen [Motrin 600 MG tab] 600 mg PO Q6H PRN #30 tablet PRN Reason: Menstrual Cramps - Provider Discharge Summary Activity: routine, no sex for 6 weeks, no heavy lifting 4 weeks, no strenuous exercise Diet: routine Instructions: routine Additional instructions: [] Smoking cessation referral if applicable(refer to patient education folder for contact #) [] Refer to [facility]'s [facility] Booklet Call your doctor immediately for: * Fever > 100.5 * Heavy vaginal bleeding ( >1 pad per hour) * Severe persistent headache * Shortness of breath * Reddened, hot, painful area to leg or breast * Drainage or odor from incision. * Keep incision clean and dry at all times and follow doctor's instructions regarding bathing/showering - Follow up plan Follow up: LUCIUS BRANHAM JR, MD [Primary Care Provider] - 6 Weeks
--- NOTE | 2020-12-23 12:16 | Post Anesthesia Evaluation ---
- Post Anesthesia Evaluation Patient Participated: Yes Airway Patent: Yes Stable Respiratory Function: Yes Nausea/Vomiting: No Temp > 96.8F: Yes Pain Manageable: Yes Adequeate Hydration: Yes Anesthesia Complications: No Block Receding Appropriately: Yes Patient on Ventilator: No
[2020-12-24] MEDS: IBUPROFEN 600 MG TAB PO SCH ×2 (01:20→10:43)
[2020-12-24] MEDS: HYDROcodone/ACETAMINOPHEN 5-325 MG TAB PO PRN (01:20)
[2020-12-24 09:47] VITALS: BP 126/68
[2020-12-24] MEDS: PRENATAL VIT27-FE FUMARATE-FOLIC ACID VIT TAB PO SCH (10:43)
== END 2020-12-24 14:00 | disposition home or self-care (01) | DRG 775 ==
LOC: TRG 15:25 → APU 15:26 → TRG 18:03 → LD 19:57 → OB 12-22 15:01
PROVIDERS: ADMIT Obstetrics & Gynecology; ATTEND Obstetrics & Gynecology
PROC: 10E0XZZ Delivery of Products of Conception, External Approach (ICD-10-PCS; principal; 2020-12-22)
PROC: 0HQ9XZZ Repair Perineum Skin, External Approach (ICD-10-PCS; 2020-12-22)
PROC: 3E0R3BZ Introduction of Anesthetic Agent into Spinal Canal, Percutaneous Approach (ICD-10-PCS; 2020-12-22)
PROC: 00HU33Z Insertion of Infusion Device into Spinal Canal, Percutaneous Approach (ICD-10-PCS; 2020-12-22)
DX: O69.81X0 Labor and delivery complicated by cord around neck, without compression, not applicable or unspecified (principal); Z3A.40 40 weeks gestation of pregnancy; Z37.0 Single live birth; O70.0 First degree perineal laceration during delivery; Z20.822 Contact with and (suspected) exposure to COVID-19
CPT/HCPCS: 36415; 82565; 82803; 85014; 85018; 85027; 86592; 86850; 86900; 86901; G0378; J2590; J3105; J3370; J7120; J7121; U0003

== ENCOUNTER 2021-09-26 11:34 | Emergency (ER) | payer MEDICAID ==
--- NOTE | 2021-09-26 11:54 | Emergency Department Report ---
ED ENT HPI - General Stated complaint: LEFT EYE SWOLLEN Time Seen by Provider: 09/26/21 11:52 Source: patient, RN notes reviewed Mode of arrival: Ambulatory Limitations: No Limitations - History of Present Illness Initial comments: This is a 36-year-old -[place] female who presents to the emergency room with left thigh swelling for 1 to 2 weeks. Patient states she was seen in an urgent care and prescribed erythromycin ointment which did not improve symptoms for conjunctivitis. Patient states her daughter was diagnosed with conjunctivitis 2 weeks ago which improved with erythromycin ointment. Patient states she was told to put ointment apply which she deviated. Patient denies visual changes but reports worsening redness, itching, swelling, and drainage. MD complaint: other (left eye swollen) Severity: severe - Related Data Home Medications Medication Instructions Recorded Confirmed Last Taken Multivitamins 1 tab PO DAILY 06/12/14 01/01/15 06/25/14 06:45 Previous Rx's Medication Instructions Recorded Last Taken Type Ibuprofen [Motrin 600 MG tab] 600 mg PO Q6H PRN #30 tablet 12/23/20 Unknown Rx Allergies Allergy/AdvReac Type Severity Reaction Status Date / Time amoxicillin Allergy Nausea Verified 12/28/14 21:45 ED Dental HPI - General Stated complaint: LEFT EYE SWOLLEN Time Seen by Provider: 09/26/21 11:52 - Related Data Home Medications Medication Instructions Recorded Confirmed Last Taken Multivitamins 1 tab PO DAILY 06/12/14 01/01/15 06/25/14 06:45 Previous Rx's Medication Instructions Recorded Last Taken Type Ibuprofen [Motrin 600 MG tab] 600 mg PO Q6H PRN #30 tablet 12/23/20 Unknown Rx Allergies Allergy/AdvReac Type Severity Reaction Status Date / Time amoxicillin Allergy Nausea Verified 12/28/14 21:45 ED Review of Systems ROS: Stated complaint: LEFT EYE SWOLLEN Other details as noted in HPI Constitutional: denies: chills, fever Eyes: eye discharge. denies: eye pain ENT: denies: ear pain, throat pain Respiratory: denies: cough, shortness of breath, wheezing Cardiovascular: denies: chest pain, palpitations Neurological: denies: headache, weakness, paresthesias Psychiatric: denies: anxiety, depression ED Past Medical Hx - Past Medical History Hx Hypertension: No Hx Congestive Heart Failure: No Hx Diabetes: No Hx Deep Vein Thrombosis: No Hx Liver Disease: No Hx Renal Disease: No Hx Sickle Cell Disease: No Hx Seizures: No Hx Asthma: No Hx COPD: No Hx HIV: No - Social History Smoking Status: Never Smoker - Medications Home Medications: Home Medications Medication Instructions Recorded Confirmed Last Taken Type Multivitamins 1 tab PO DAILY 06/12/14 01/01/15 06/25/14 06:45 History Ibuprofen [Motrin 600 MG tab] 600 mg PO Q6H PRN #30 tablet 12/23/20 Unknown Rx ED Physical Exam - General General appearance: alert, in no apparent distress, obese - Head Head exam: Present: atraumatic, normocephalic - Eye Eye exam: Present: PERRL, EOMI, conjunctival injection, periorbital swelling. Absent: periorbital tenderness Pupils: Present: normal accommodation - ENT ENT exam: Present: mucous membranes moist - Respiratory Respiratory exam: Present: normal lung sounds bilaterally. Absent: respiratory distress - Cardiovascular Cardiovascular Exam: Present: regular rate, normal rhythm. Absent: systolic murmur, diastolic murmur, rubs, gallop - Neurological Exam Neurological exam: Present: alert, oriented X3, normal gait - Psychiatric Psychiatric exam: Present: normal affect, normal mood - Skin Skin exam: Present: warm, dry, intact, normal color. Absent: rash ED Course Vital Signs 09/26/21 11:50 Temperature 98.9 F Pulse Rate 75 Respiratory 18 Rate Blood Pressure 142/94 O2 Sat by Pulse 100 Oximetry ED Medical Decision Making - Medical Decision Making Patient presents with left pink eye, periorbital swelling, with mucous discharge for 1-2 weeks. Patient is stable and was examined by me. Vitals stable. Physical assessment susceptible of conjunctivitis bilateral. Failed antibiotic therapy. 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 Discussed plan with patient who agreed with plan. Discharged home in stable condition. Follow up with PCP in 24-72 hours. Critical care attestation.: If time is entered above; I have spent that time in minutes in the direct care of this critically ill patient, excluding procedure time. ED Disposition Clinical Impression: Periorbital swelling Conjunctivitis Qualifiers: Conjunctivitis type: acute Acute conjunctivitis type: bacterial Laterality: left Qualified Code(s): H10.32 - Unspecified acute conjunctivitis, left eye Disposition: HOME / SELF CARE / HOMELESS Is pt being admited?: No Condition: Stable Instructions: Bacterial Conjunctivitis, Adult Referrals: RAUL MOREL MD [Staff Physician] - 3-5 Days Forms: Work/School Release Form(ED) Time of Disposition: 12:46
[2021-09-26 13:31] VITALS: BP 140/90
== END 2021-09-26 13:31 | disposition home or self-care (01) ==
LOC: ED 11:34
DX: H10.9 Unspecified conjunctivitis (principal); H05.222 Edema of left orbit; Z88.0 Allergy status to penicillin
CPT/HCPCS: 99282